=== PATIENT | female | born 1950 | race American Indian/Alaskan Native ===

== ENCOUNTER 2018-06-23 11:20 | Emergency (ER) | payer OTHER ==
[~2018-06-23] VITALS: Ht 162.6 cm; Wt 108.9 kg
[2018-06-23] MEDS ORDERED: LEVOXYL50 MCG PO (11:52)
[2018-06-23] MEDS ORDERED: PRINIVIL5 MG PO (11:52)
--- OUTSIDE RECORDS SUMMARY | 2018-06-23 13:12 | XMS ---
PreManage Notification: RALPH LONDONO Security Information Lead Events No recent Security Events currently on file CRITERIA MET - [facility] - 2 Visits in 30 Days CARE PROVIDERS There are no care providers on record at this time. Goldy has no Care Guidelines for this patient. Jason VISIT COUNT (12 MO.) 1 Missy Leal 1 BRIGITTE Arenas TOTAL 2 NOTE: Visits indicate total known visits. ED/UCC VISIT TRACKING (12 MO.) 06/23/2018 11:21 [facility] TYPE: Emergency COMPLAINT: - ABD PAIN 06/10/2018 08:28 Missy CARLOS TYPE: Emergency DIAGNOSES: - Other specified disorders of Eustachian tube, right ear INPATIENT VISIT TRACKING (12 MO.) No inpatient visits to display in this time frame [email or web address]
[2018-06-23] MEDS ORDERED: PANTOPRAZOLE SO40 MG PO (13:28)
--- NOTE | 2018-06-23 21:11 | EKG ---
[facility] [address] [facility] [address] [place] [address] Signed Normal sinus rhythm Increased R/S ratio in V1, consider early transition or posterior infarct Abnormal ECG No previous ECGs available Confirmed by KASH NERI DO ([id number]) on 06/23/2018 9:11:09 PM Electronically Signed By: KASH NERI DO 06/23/182110 PATIENT NAME: RALPH LONDONO Electrocardiogram DATE OF : 50 PHYSICIAN: KASH NERI DO REPORT #: [id number] REPORT IS CONFIDENTIAL AND NOT TO BE RELEASED WITHOUT AUTHORIZATION
== END 2018-06-23 15:43 | disposition home or self-care (01) ==
LOC: ED 11:20
DX: K29.70 Gastritis, unspecified, without bleeding (principal); Z88.5 Allergy status to narcotic agent; Z79.899 Other long term (current) drug therapy
CPT/HCPCS: 71045; 80053; 81001; 83690; 84484; 85025; 93005; 93010; 99284